=== PATIENT | male | born 1955 | race Caucasian/White ===

== ENCOUNTER 2023-01-23 08:37 | Emergency (ER) | payer MEDICARE, SELFPAY ==
[2023-01-23 08:38] VITALS: BP 146/84; PULSE 78; RESP 16; TEMP 36.4; O2SAT 99; BMI 27.9
--- NOTE | 2023-01-23 09:59 | EX.ED.DYSGE1 ---
HPI History of Present Illness Chief Complaint: General Illness Narrative Narrative: 67-year-old male presenting for testing for COVID. He states he was exposed to COVID 2 days ago. He has a mild headache and a mild sore throat which is improving since yesterday. Patient denies a fever, chills, shortness of breath, cough, chest pain. He is eating and drinking normally. He is making normal urine and stool. [facility] Medical History Diabetes Allergy/AdvReac Type Severity Reaction Status Date / Time No Known Allergies Allergy Verified 01/23/23 08:37 Social History Smoking Status: Current every day smoker tobacco type: cigarettes ROS ROS ED Constitutional Constitutional ED: Denies chills, fever(s) or sweats Eyes Eyes: Denies blurry vision or change in vision ENT ENT ED: Reports sore throat; Denies ear pain Cardiovascular Cardiovascular: Denies chest pain, palpitations or racing heartbeat Respiratory/Chest Respiratory/Chest: Denies cough, dyspnea or sputum Gastrointestinal Gastrointestinal: Denies abdominal pain, constipation, diarrhea, nausea or vomiting Genitourinary Genitourinary ED: Denies dysuria, hematuria or urinary frequency Musculoskeletal Musculoskeletal: Denies arthralgias, myalgias or neck pain Integumentary Denies abscess, Abrasions or rash Neurologic Neurologic: Denies headache(s), paresthesias or weakness Psychiatric Psychiatric: Denies anxiety, depression, suicidal ideation or suicidal thoughts Endocrine Endocrinology: Denies polydipsia or polyuria EXAM Physical Exam Const Vital Signs: 01/23/23 08:38 01/23/23 08:53 Temperature 97.6 F L Temperature Source Temporal Pulse Rate 78 Respiratory Rate 16 Respiratory Effort Normal Respiratory Pattern Normal Blood Pressure 146/84 H Blood Pressure Mean 104 Pulse Ox 99 Oxygen Delivery Method Room Air Positive well nourished General Appearance ED: NAD; Negative for pallor HEENT Reports moist mucous membranes Eyes PERRL and EOMs intact bilaterally Neck no lymphadenopathy Resp normal respiratory effort and clear to auscultation bilaterally Auscultation: Negative for rales, rhonchi or wheezes Cardio regular rate and regular rhythm GI normal to inspection, nondistended, normoactive bowel sounds Neuro oriented x3 and CN's II-XII intact bilaterally Sensorium / Orientation: alert Motor Exam: strength 5/5 throughout Psych mental status grossly normal Skin no rashes or lesions noted General Skin Exam: Negative for jaundice or pallor MDM MDM MDM Narrative Medical decision making narrative: 59-year-old male presenting with exposure to COVID-19. He states he has a mild headache and improving sore throat. He is not having a cough or shortness of breath. No fever or chills. He states he feels generally well. He states he just wanted to get checked out. Vital signs are stable he is afebrile. Patient tested for COVID-19 and is negative today. Patient counseled still possible that he has something viral. He is recommended to do Tylenol and ibuprofen as needed for fever, chills, body aches. Follow-up with PCP to ensure resolution. Return precautions discussed. Impression: 1. Viral syndrome Discharge Plan Triage Chief Complaint: General Illness ED Provider: Farshad Caballero Dx/Rx/DC Orders Instructions: ED Viral Syndrome (Adult) Primary Care Provider: HEATHER MCDANIELS Referrals: HEATHER MCDANIELS [Other] Disposition Disposition: Home, Self Care
== END 2023-01-23 10:29 | disposition home or self-care (01) ==
PROVIDERS: Emergency Provider Student in an Organized Health Care Education/Training Program; Visit Provider Student in an Organized Health Care Education/Training Program
DX: B34.9 Viral infection, unspecified (principal); E11.9 Type 2 diabetes mellitus without complications; F17.210 Nicotine dependence, cigarettes, uncomplicated; Z20.822 Contact with and (suspected) exposure to COVID-19; R51.9 Headache, unspecified
CPT/HCPCS: 87811; 94760; 99282

== ENCOUNTER 2023-02-13 10:23 | Emergency (ER) | payer MEDICARE, SELFPAY ==
[2023-02-13] VITALS (7 sets, daily range): BP systolic 127–135; BP diastolic 72–86; PULSE 56–96; RESP 20–23; TEMP 36.6; O2SAT 96–99; BMI 27.9
--- NOTE | 2023-02-13 10:41 | EKG12_ITS ---
Test Reason : Blood Pressure : / mmHG Vent. Rate : 079 BPM Atrial Rate : 079 BPM P-R Int : 144 ms QRS Dur : 074 ms QT Int : 380 ms P-R-T Axes : 005 -32 038 degrees QTc Int : 435 ms Normal sinus rhythm Left axis deviation Abnormal ECG Confirmed by SOLE JAMES, ROXI ([id number]), dictionary editor MEL PACHECO ([id number]) on 02/14/2023 8:40:34 AM Referred By: AVELINO Confirmed By:ROXI WHIPPLE MD
--- NOTE | 2023-02-13 10:42 | ED.VIS.DYS ---
HPI History of Present Illness Chief Complaint: Shortness of Breath Narrative Narrative: 67-year-old male, smokes left-handed cigarettes, presents with his because of increasing shortness of breath and dyspnea on exertion. They state that they were seen on Monday or Monday at the urgent care, 4 days ago, and told that he was on the verge of pneumonia. They placed him on an antibiotic, and told him to go to the hospital if he felt worse. He denies any chest pain or leg swelling, but states he is having increased difficulty breathing and dyspnea on exertion. He has coughed up phlegm but denies any fevers or chills. No muscle aches, no other symptoms. He does state that he feels weak and tired at times. [facility] Medical History Diabetes Home Medications albuterol sulfate 90 mcg/actuation aerosol inhaler 2 puff inhalation Q6H PRN Wheezing 02/13/23 [History Last Taken Unknown] glimepiride 2 mg tablet 2 mg PO DAILY 02/13/23 [History Last Taken Unknown] metformin 1,000 mg tablet 1,000 mg PO DAILY 02/13/23 [History Last Taken Unknown] pioglitazone 30 mg tablet 30 mg PO DAILY 02/13/23 [History Last Taken Unknown] Allergy/AdvReac Type Severity Reaction Status Date / Time No Known Allergies Allergy Verified 02/13/23 10:23 Social History Smoking Status: Current every day smoker tobacco type: cigarettes ROS ROS ED ROS Narrative Constitutional: No fever, no chills. HEENT: No sore throat. No neck pain. No loss of vision. No rhinorrhea. Cardiovascular: No chest pain. No palpitations. No pedal edema. Respiratory: Positive cough, increasing dyspnea on exertion and shortness of breath. Abdominal: No abdominal pain. No nausea. No vomiting. Genitourinary: No dysuria. No hematuria. Musculoskeletal: No myalgias. No arthralgias. Neurologic: No headaches. No dizziness. No lightheadedness. Skin: No rash. No change in color. Psychiatric: No depression. No anxiety. EXAM Physical Exam Narrative Exam Narrative: Afebrile. Vital signs noted. HEENT: Normocephalic. Atraumatic. PERRL, EOMI. Neck soft and supple. No point tenderness or step off. Cardiovascular: Regular rate and rhythm. No murmurs, rubs, or gallops appreciated. Respiratory: No tachypnea on exam. Lungs clear to auscultation bilaterally with exception of slightly prolonged expiratory phase. Gastrointestinal: Abdomen soft, nontender, with normoactive bowel sounds. No rebound or guarding. Neurological: Awake. Alert. Nonfocal, nonlateralizing. Skin: No rash. Normal color. No pallor. Musculoskeletal: No pedal edema. Full range of motion extremities. Const Vital Signs: 02/13/23 10:24 02/13/23 10:52 02/13/23 11:27 Temperature 97.8 F Temperature Source Temporal Pulse Rate 56 L 70 Respiratory Rate 20 H 20 H Respiratory Effort Short of Breath Respiratory Depth Normal Respiratory Pattern Tachypnea Blood Pressure 130/81 H 135/86 H Blood Pressure Mean 97 102 Pulse Ox 96 98 Oxygen Delivery Method Room Air Room Air Room Air 02/13/23 10:45 02/13/23 12:35 Temperature Temperature Source Pulse Rate 96 81 Respiratory Rate 20 H 23 H Respiratory Effort Respiratory Depth Respiratory Pattern Normal Blood Pressure 127/80 H Blood Pressure Mean 95 Pulse Ox 98 Oxygen Delivery Method Room Air MDM MDM MDM Narrative Medical decision making narrative: Patient may have underlying COPD, versus bronchitis, versus pneumonia. Pulse ox is 96% on room air without evidence of hypoxia. Comprehensive work-up was pursued. I will obtain a chest x-ray and a COVID/influenza swab. I do feel that this would help ruling out a pneumonia. However, the patient is already on antibiotics. I will obtain a CBC and BMP to look for anemia as a cause of his weakness and shortness of breath. EKG was obtained and interpreted by myself which demonstrates normal sinus rhythm at 79 bpm without ectopy or acute ST changes. No STEMI. I have low concern for pulmonary embolism as the patient is not tachycardic and he has a normal pulse ox, and does not describe pleuritic pain. I reviewed the patient's laboratory work, he has a normal white count of 6.3, hemoglobin normal at 14.2, platelet count normal at 234. Sodium slightly low at 133 with potassium normal at 3.8, BUN of 27 with a creatinine of 1.19. Glucose is elevated at 429 consistent with his diabetes, but he has a normal anion gap of 8. I do not feel he is in diabetic ketoacidosis. He has a normal troponin of 4. I do feel that this is greater than a 6-hour troponin. Given the normal EKG and normal troponin I do not feel that he has an acute coronary syndrome or non-STEMI. He also has a normal BNP at 25.8 so I do not feel that he is in congestive heart failure. Chest x-ray was obtained and interpreted by myself as no evidence of a consolidation or pneumonia, no pneumothorax. I reviewed the radiology report which confirms my independent interpretation. At this point in time, he was ambulated in the emergency department and while he may have felt dyspneic, he was not hypoxic. I feel he can be discharged safely home with follow-up to his primary care provider. He may need referral to pulmonology. He was told to refrain from smoking. Additionally, he states he has an albuterol inhaler at home. I do not feel steroids are indicated as this would raise his blood sugars even higher. He may have underlying COPD. He will finish the rest of his antibiotics and follow-up with his primary care provider. Return instructions to the emergency department were reviewed. I do not feel that he meets any observation or admission criteria. Disposition is discharged home in stable condition. History & Record Review Discussion w/independent historian: Patient and Significant other Additional record(s) reviewed:: Prior ED visit Lab Data Attestation: I reviewed the patient's lab results. Labs: Laboratory Results - last 24 hr 02/13/23 02/13/23 02/13/23 10:48 10:48 10:48 WBC 6.3 RBC 4.81 Hgb 14.2 Hct 42.3 MCV 87.9 MCH 29.5 MCHC 33.6 RDW Std Deviation 42.0 RDW Coeff of Zack 13.0 Plt Count 234 MPV 9.7 Immature Gran % (Auto) 0.300 Neut % (Auto) 57.6 Lymph % (Auto) 35.8 [place] % (Auto) 5.3 Eos % (Auto) 0.5 Baso % (Auto) 0.5 Absolute Neuts (auto) 3.6 Absolute Lymphs (auto) 2.25 Nucleated RBC % 0 Differential Comment SCANNED Atypical Lymphocytes 1+ Sodium 133 L Potassium 3.8 Chloride 103 Carbon Dioxide 22.0 Anion Gap 8 BUN 27 H Creatinine 1.19 Estim Creat Clear Calc 65.21 Est GFR (MDRD) Af Amer 78 Est GFR (MDRD) Non-Af 65 BUN/Creatinine Ratio 22.7 H Glucose 429 H Calcium 8.9 Troponin I High Sens 4 B-Natriuretic Peptide 25.8 Radiography Diagnostic Testing: Clinical Impression(s) from Imaging Studies Chest X-Ray 02/13/23 11:07 IMPRESSION: No acute abnormality is present. Electronically Signed: Ancelmo Robertson MD at 11:18 EDT , Discharge Plan Triage Chief Complaint: Shortness of Breath ED Provider: Khurram Murry Dx/Rx/DC Orders Clinical Impression: SOB (shortness of breath), Hyperglycemia Instructions: ED Dyspnea Prescriptions: No Action glimepiride 2 mg tablet 2 mg PO DAILY metformin 1,000 mg tablet 1,000 mg PO DAILY albuterol sulfate 90 mcg/actuation HFA aerosol inhaler 2 puff INHALATION Q6H PRN (Reason: Wheezing) Label Comments: inhale 2 puffs by mouth and INTO THE LUNGS every 4 to 6 hours if ... (REFER TO PRESCRIPTION NOTES). pioglitazone 30 mg tablet 30 mg PO DAILY Primary Care Provider: SIOMN MUÑOZ Referrals: SIMON MUÑOZ [Other] Activity Restrictions/Additional Instructions: Follow-up with your primary care provider in the next 3 to 5 days if not improving. Finish the rest of your antibiotics. Disposition Disposition: Home, Self Care
[2023-02-13] MEDS: Albuterol 2.5 MG/3 ML VIAL.NEB. INHALATION (10:45)
[2023-02-13 10:58] LABS: Absolute Lymphocyte Count 2.25 X10^3/uL (0.83-4.51); Absolute Neutrophil Count 3.6 X10^3/uL (2.0-7.7); Basophil# 0.03 X10^3/uL; Basophil% 0.5 % (0-1); Eosinophil# 0.03 X10^3/uL; Eosinophils% 0.5 % (0-5); Hematocrit 42.3 % (40-54); Hemoglobin 14.2 g/dL (13.0-16.5); Lymphocyte # 2.25 X10^3/ul (0.83-4.51); Lymphocyte % 35.8 % (19-41); Mean Corp Hgb Conc 33.6 g/dL (32-36); Mean Corpuscular Hgb 29.5 pg (27.0-32.0); Mean Corpuscular Volume 87.9 fL (80-94); Mean Platelet Vol. 9.7 fl (6.2-12.0); Monocyte# 0.33 X10^3/uL; Monocyte% 5.3 % (0-10); NRBC Flagged by Analyzer 0 % (0-5); Neutrophil # 3.62 X10^3/uL (2.7-7.7); Neutrophil % 57.6 % (47-70); POSITIVE MORPHOLOGY YES; Platelet Count 234 K/mm3 (150-450); Red Blood Count 4.81 M/mm3 (4.6-6.2); White Blood Count 6.3 K/mm3 (4.4-11.0)
--- NOTE | 2023-02-13 11:07 | RAD_ITS ---
STUDY: X-RAY CHEST REASON FOR EXAM: Male, 67 years old. Shortness of breath TECHNIQUE: Single AP portable view of the chest. COMPARISON: None. FINDINGS: EKG electrodes are seen. The lungs are clear and expanded. There is no demonstrated pleural abnormality. Normal size heart. Normal mediastinum and [place]. Normal visualized pulmonary arteries. There is atherosclerotic calcification of the aortic arch with tortuosity. There are diffuse degenerative changes of the visualized thoracic spine. Normal visualized ribs, clavicles, and shoulders. There is no demonstrated abnormality of the visualized soft tissue structures of the upper abdomen. RAD/Chest 1 View (Portable) IMPRESSION: No acute abnormality is present. Electronically Signed: Ancelmo Robertson MD at 11:18 EDT ,
[2023-02-13 11:10] LABS: Differential Indicated SCAN CRITERIA MET
[2023-02-13 11:13] LABS: Anion Gap 8 (5-15); BUN 27 mg/dL (7-18); BUN/Creat Ratio 22.7 RATIO (10-20); Calcium,Total 8.9 mg/dL (8.5-10.1); Chloride 103 mmol/L (98-107); Creatinine, Serum 1.19 mg/dL (0.70-1.30); EST Glomerular Filtration Rate 65 mL/min (>60); Est Glom Filt Rate - Afr Amer 78 mL/min (>60); Estimated Creatinine Clearance 65.21 ml/min; Glucose 429 mg/dL (74-106); Potassium 3.8 mmol/L (3.5-5.1); Sodium Level 133 mmol/L (136-145); Troponin-I HS 4 pg/mL (3.0-78.0)
[2023-02-13 11:24] LABS: Atypical Lymphocyte 1+ %; Differential Comment SCANNED
[2023-02-13 11:28] LABS: BNP,B-Type NATRIURETIC PEPTIDE 25.8 pg/mL (0-100)
== END 2023-02-13 13:30 | disposition home or self-care (01) ==
PROVIDERS: Emergency Provider Emergency Medicine; Visit Provider Emergency Medicine
DX: R06.02 Shortness of breath (principal); E11.65 Type 2 diabetes mellitus with hyperglycemia; F17.210 Nicotine dependence, cigarettes, uncomplicated; Z79.84 Long term (current) use of oral hypoglycemic drugs
CPT/HCPCS: 71045; 80048; 83880; 84484; 85025; 87428; 93005; 94640; 99284; A4216

== ENCOUNTER 2023-03-15 10:04 | Emergency (ER) | payer MEDICARE, SELFPAY ==
[2023-03-15 10:05] VITALS: BP 145/76; PULSE 78; RESP 16; TEMP 36.6; O2SAT 98; BMI 33.2
--- NOTE | 2023-03-15 10:21 | EDS_ITS ---
HPI HPI - Fall History of Present Illness Chief Complaint: Fall Informant: patient Occured/Mechanism Occurred: Yesterday Pain/Injury Pain Location: lower extremity Quality of Pain: Aching and Throbbing Current Severity: Mild Maximum Severity: Moderate Narrative Narrative: Patient presents secondary to right hip pain. He states he was going up some steps into his mobile home yesterday when he fell backwards landing on a concrete pad. He has pain to the lateral right hip. He denies any other injury. He took Tylenol this morning without improvement. [facility] Medical History Diabetes Home Medications albuterol sulfate 90 mcg/actuation aerosol inhaler 2 puff inhalation Q6H PRN Wheezing 02/13/23 [History Last Taken Unknown] glimepiride 2 mg tablet 2 mg PO DAILY 02/13/23 [History Last Taken Unknown] metformin 1,000 mg tablet 1,000 mg PO DAILY 02/13/23 [History Last Taken Un known] pioglitazone 30 mg tablet 30 mg PO DAILY 02/13/23 [History Last Taken Unknown] naproxen 500 mg tablet (Naprosyn) 500 mg PO BID PRN pain #12 tabs 03/15/23 [Rx Last Taken Unknown] Allergy/AdvReac Type Severity Reaction Status Date / Time No Known Allergies Allergy Verified 03/15/23 10:04 Social History Smoking Status: Current every day smoker tobacco type: cigarettes ROS ROS ED Constitutional Constitutional ED: Denies chills or fever(s) Eyes Eyes: Denies change in vision ENT ENT ED: Denies rhinorrhea or sore throat Cardiovascular Cardiovascular: Denies chest pain or palpitations Respiratory/Chest Respiratory/Chest: Denies cough or dyspnea Gastrointestinal Gastrointestinal: Denies abdominal pain, nausea or vomiting Genitourinary Genitourinary ED: Denies dysuria Musculoskeletal Musculoskeletal: Reports extremity pain; Denies back pain Integumentary Denies Abrasions or rash Neurologic Neurologic: Denies headache(s) or weakness Allergic/Immunologic Allergic/Immunologic ED: Denies lip swelling or urticaria EXAM Physical Exam Const Vital Signs: 03/15/23 10:05 Temperature 97.8 F Temperature Source Temporal Pulse Rate 78 Respiratory Rate 16 Blood Pressure 145/76 H Blood Pressure Mean 99 Pulse Ox 98 Oxygen Delivery Method Room Air Positive well nourished and well developed General Appearance ED: well developed HEENT Reports normocephalic and head/scalp atraumatic Eyes PERRL and EOMs intact bilaterally Neck supple Chest Wall inspection of chest normal and palpation of chest normal Resp normal respiratory effort and clear to auscultation bilaterally Cardio regular rate and regular rhythm GI normal to inspection, nondistended, normoactive bowel sounds Palpation: soft Back/Spine no CVA tenderness Extremity Extremity Narrative: Tenderness outpatient over the greater trochanter of the right hip. No significant edema, erythema, ecchymosis. No pain with logroll of the right leg. Neuro oriented x3 and no sensory deficits noted Sensorium / Orientation: alert Motor Exam: strength 5/5 throughout Psych mental status grossly normal Skin no rashes or lesions noted MDM MDM MDM Narrative Medical decision making narrative: Patient sent for x-rays of the pelvis and right hip to evaluate for fracture. Treatment and Re-Evaluation Narrative: Right hip and pelvis x-rays per my interpretation reveal no evidence of acute fracture. Test results are discussed with patient and at bedside. I did review recent lab work and he has normal renal function. I will give him a short course of anti-inflammatories. Discharge Plan Triage Chief Complaint: Fall ED Provider: Laurel Vidal Dx/Rx/DC Orders Clinical Impression: Contusion of hip, right Instructions: ED Hip Contusion Prescriptions: New naproxen [Naprosyn] 500 mg tablet 500 mg PO BID PRN (Reason: pain) Qty: 12 0RF No Action glimepiride 2 mg tablet 2 mg PO DAILY metformin 1,000 mg tablet 1,000 mg PO DAILY albuterol sulfate 90 mcg/actuation HFA aerosol inhaler 2 puff INHALATION Q6H PRN (Reason: Wheezing) Label Comments: inhale 2 puffs by mouth and INTO THE LUNGS every 4 to 6 hours if ... (REFER TO PRESCRIPTION NOTES). pioglitazone 30 mg tablet 30 mg PO DAILY Primary Care Provider: SIMON MUÑOZ Referrals: SIMON MUÑOZ [Other] - 1 Week if not improving Disposition Disposition: Home, Self Care
--- NOTE | 2023-03-15 10:50 | RAD_ITS ---
STUDY: X-RAY - PELVIS AND RIGHT HIP REASON FOR EXAM: Male, 67 years old. Right hip pain following a fall. TECHNIQUE: 3 views of the pelvis and hip. COMPARISON: None. FINDINGS: There is a non-specific bowel gas pattern. Normal visualized soft tissue structures. Normal bilateral iliac wings, sacroiliac joints and visualized sacrum. Normal bilateral superior and inferior pubic rami. Normal pubic symphysis. Normal bilateral ischial tuberosities. Normal visualized femoral head. Normal acetabulum. Normal hip joint. RAD/HIP, UNI W/ Pelvis 2-3 Views IMPRESSION: Normal x-ray examination of the pelvis and hip. Electronically Signed: Ancelmo Robertson MD at 11:05 EDT ,
[2023-03-15] MEDS: Naproxen 500 MG Tablet PO (11:20)
== END 2023-03-15 11:21 | disposition home or self-care (01) ==
LOC: ED 11:19
PROVIDERS: Emergency Provider Emergency Medicine; Visit Provider Emergency Medicine
DX: S70.01XA Contusion of right hip, initial encounter (principal); E11.9 Type 2 diabetes mellitus without complications; F17.210 Nicotine dependence, cigarettes, uncomplicated; W19.XXXA Unspecified fall, initial encounter
CPT/HCPCS: 73502; 99282

== ENCOUNTER → 2024-07-19 | Outpatient (CLI) | payer MEDICARE, SELFPAY | END | disposition home or self-care (01) | LOC: PSN 07:55 | DX: Z01.810 Encounter for preprocedural cardiovascular examination (principal) | CPT/HCPCS: 93005 ==

== ENCOUNTER 2024-09-16 16:55 | Emergency (ER) | payer MEDICARE, SELFPAY ==
[2024-09-16] VITALS (8 sets, daily range): BP systolic 89–143; BP diastolic 61–91; PULSE 50–79; RESP 15–20; TEMP 36.6–36.7; O2SAT 98–100; BMI 27.5
--- NOTE | 2024-09-16 17:00 | EKG12_ITS ---
Test Reason : CP Blood Pressure : / mmHG Vent. Rate : 059 BPM Atrial Rate : 059 BPM P-R Int : 160 ms QRS Dur : 072 ms QT Int : 432 ms P-R-T Axes : 038 -21 066 degrees QTc Int : 427 ms Sinus bradycardia Otherwise normal ECG Confirmed by SOLE JAMES, ROXI ([id number]), purchasing expeditor JARVIS LUTZ ([id number]) on 09/18/2024 10:04:33 AM Referred By: MALDONADO Confirmed By:ROXI WHIPPLE MD
--- NOTE | 2024-09-16 17:01 | ED.VIS.CHEST ---
HPI History of Present Illness Chief Complaint: Chest Pain [facility] Medical History Diabetes Home Medications ?Medication ?Instructions ?Recorded ?Last Taken ?Type albuterol sulfate 90 mcg/actuation 2 puff inhalation Q6H PRN Wheezing 02/13/23 Unknown History aerosol inhaler glimepiride 2 mg tablet 2 mg PO DAILY 02/13/23 Unknown History metformin 1,000 mg tablet 1,000 mg PO DAILY 02/13/23 Unknown History pioglitazone 30 mg tablet 30 mg PO DAILY 02/13/23 Unknown History naproxen 500 mg tablet (Naprosyn) 500 mg PO BID PRN pain #12 tabs 03/15/23 Unknown Rx Allergy/AdvReac Type Severity Reaction Status Date / Time No Known Allergies Allergy Verified 09/16/24 16:56 Social History Smoking Status: Current every day smoker tobacco type: cigarettes EXAM Physical Exam Const Vital Signs: 09/16/24 16:55 09/16/24 16:56 09/16/24 17:00 Temperature 98.1 F Temperature Source Oral Pulse Rate 62 58 L Respiratory Rate 20 H 15 Blood Pressure 121/81 H 121/81 H Blood Pressure Mean 94 94 Pulse Ox 100 100 100 Oxygen Delivery Method Room Air 09/16/24 17:55 09/16/24 18:47 09/16/24 19:00 Temperature Temperature Source Pulse Rate 63 65 50 L Respiratory Rate 18 18 16 Blood Pressure 106/62 126/75 H 103/65 Blood Pressure Mean 76 92 77 Pulse Ox 100 99 100 Oxygen Delivery Method Room Air Room Air 09/16/24 20:00 Temperature Temperature Source Pulse Rate 67 Respiratory Rate 15 Blood Pressure 89/61 L Blood Pressure Mean 70 Pulse Ox 98 Oxygen Delivery Method Room Air MDM MDM MDM Narrative Medical decision making narrative: HISTORY OF PRESENT ILLNESS: 69-year-old male history of diabetes presents with chest pain. Denies history of stents or heart attacks. No chest pain began 30 minutes prior to arrival was transient improved with nitroglycerin. Is pressure-like. Was not exertional was not associate with shortness of breath. No recent cough fever chills. No leg swelling. No orthopnea or paroxysmal nocturnal dyspnea. Patient noted he felt anxious. Denies vomiting or diarrhea. The patient denies recent surgery in the last 4 weeks or immobilization in the last 3 days, denies previous diagnosis of DVT or PE, hemoptysis, unilateral leg swelling or malignancy with treatment the last 6 months or palliative. No estrogen use noted. Patient denies sudden onset of pain, no tearing sensation, no migratory symptoms, no new numbness, weakness or loss of sensation. Patient denies family history or personal history of Connective tissue disorders (Marfan's Syndrome, Cristobal Danlos etc). REVIEW OF SYSTEMS: Pertinent positives: Chest pain, anxiety Pertinent negatives: Shortness of breath, leg swelling PHYSICAL EXAM: Nursing triage notes reviewed, Vital signs reviewed Constitutional: please see [facility] HENT: MMM Eyes: Pupils equal round and reactive to light, Extraocular muscles intact Neck: No stridor, no JVD, full neck ROM Lungs: Clear to auscultation, No wheezing or rales. No increased work of breathing, no conversational dyspnea, no accessory muscle use, no nasal flaring. No respiratory distress noted Heart: Regular rate and rhythm, No murmurs, No rubs and No gallops, 2+ distal pulses (radial, femoral, posterior tibial) in all extremities Abdomen: Soft, there is no tenderness, rigidity, rebound or guarding, no obvious peritoneal signs, no palpable pulsatile abdominal masses, no auscultated abdominal bruit : No CVAT Extremities: No edema Neuro: No focal neurological deficits, cranial nerves II through XII intact, 5/5 strength in all extremities. Intact sensation to light touch in all extremities, 2+ reflexes bilateral patella tendons. Normal gait. No ataxia. Skin: No rash or lesions noted MEDICAL DECISION MAKING: Chief Complaint: Chest pain External records reviewed: Reviewed prior allergies, problem list, current medications, prior cardiovascular interventions for which there were none Factors affecting care: As per HPI Social determinants of health: Smokes marijuana History obtained from others: EMS, spouse Consults: none [] [facility] Narrative: The patient was hemodynamically stable, afebrile and nontoxic-appearing. Exam without focal cardiopulmonary abnormalities. No stigmata of CHF or VTE. I considered the following differential diagnosis: ACS, arrhythmia, anemia, PE, aortic dissection, pneumonia, pneumothorax, pericarditis I obtained a broad lab and imaging workup to further elucidate etiology of patient's complaints. ALL IMAGES (IF OBTAINED) HAVE BEEN PERSONALLY REVIEWED AND INTERPRETED BY MYSELF. EKG with sinus bradycardia rate 59, otherwise normal intervals, no STEMI, no stigmata of VTE, no sign of ARVD or Brugada syndrome CBC without leukocytosis, severe anemia, no thrombocytopenia. BMP without evidence of significant electrolyte abnormalities, no anion gap, no acute kidney injury. High-sensitivity troponin is negative, no evidence of myocardial ischemiax2 I have personally reviewed the patient's chest x-ray. Chest x-ray is unremarkable for pulmonary edema, pneumothorax, pneumonia or focal cardiopulmonary abnormality. The patient and/or family, caregivers express understanding. The patient and/or family, caregivers agrees with the plan. Shared decision making: I will have a discussion with the patient and or visitors regarding risk/benefits of further testing or admission. They will be made aware of of the risk/benefits inherent in this decision they will be given the opportunity to voice understanding. I discussed the patient's advanced risk given his age history of diabetes and complaint of chest pain. I offer the patient admission. The patient refused. Patient is alert and orient x 3 and had capacity to make his own medical system shows focal admission at this time and lieu of following with his primary care physician for outpatient confirmatory testing. Total critical care time today provided was at least 0 minutes. This excludes separately billable procedures. Critical care time (if documented) is secondary to the patient having high probability of clinically significant/life threatening deterioration in the patient's condition which required my urgent intervention. Impression: 1. Chest pain 2. History of diabetes Dispo: Discharge home This note was generated with [employer] dictation software. It may contain incorrect words, spelling, and punctuation that were not noted in review of the chart prior to signing. Lab Data Labs: Laboratory Results - last 24 hr 09/16/24 09/16/24 17:00 19:20 WBC 6.6 RBC 4.83 Hgb 14.9 Hct 41.9 MCV 86.7 MCH 30.8 MCHC 35.6 RDW Std Deviation 40.9 RDW Coeff of Zack 13.0 Plt Count 236 MPV 9.3 Immature Gran % (Auto) 0.300 Neut % (Auto) 44.2 L Lymph % (Auto) 43.8 H [place] % (Auto) 9.1 Eos % (Auto) 1.5 Baso % (Auto) 1.1 H Absolute Neuts (auto) 2.9 Absolute Lymphs (auto) 2.90 Nucleated RBC % 0 Sodium 136 Potassium 3.9 Chloride 105 Carbon Dioxide 20.0 L Anion Gap 11 BUN 19 H Creatinine 1.18 Estim Creat Clear Calc 63.94 Est GFR (MDRD) Af Amer 78 Est GFR (MDRD) Non-Af 65 BUN/Creatinine Ratio 16.1 Glucose 193 H Calcium 9.4 Troponin I High Sens 5 8 Radiography Diagnostic Testing: Clinical Impression(s) from Imaging Studies Chest X-Ray 09/16/24 17:13 IMPRESSION: No radiographic evidence of acute cardiopulmonary disease. Electronically Signed: Osmin Adams DO at 18:22 EDT Reading Location ID and State: [facility] / [place] Tel [phone], Service support , Discharge Plan Triage Chief Complaint: Chest Pain ED Provider: Tamir Clemente Dx/Rx/DC Orders Prescriptions: No Action glimepiride 2 mg tablet 2 mg PO DAILY metformin 1,000 mg tablet 1,000 mg PO DAILY albuterol sulfate 90 mcg/actuation HFA aerosol inhaler 2 puff INHALATION Q6H PRN (Reason: Wheezing) Patient Comments: inhale 2 puffs by mouth and INTO THE LUNGS every 4 to 6 hours if ... (REFER TO PRESCRIPTION NOTES). pioglitazone 30 mg tablet 30 mg PO DAILY naproxen [Naprosyn] 500 mg tablet 500 mg PO BID PRN (Reason: pain) Qty: 12 0RF Primary Care Provider: Perez Merritt Referrals: Perez Merritt MD [Primary Care Provider] - Print Language: Guinean
--- NOTE | 2024-09-16 17:10 | ED.RN ---
DENIES CP PRESENTLY, HEADACHE AFTER NITRO
--- NOTE | 2024-09-16 17:13 | RAD_ITS ---
INDICATION: chest pain EXAMINATION/TECHNIQUE: X-RAY - XR Chest 1 View COMPARISON: FINDINGS: LINES/DEVICES: None. LUNGS: No consolidation, edema or effusion. No pneumothorax. MEDIASTINUM AND CARDIOVASCULAR STRUCTURES: Cardiac silhouette not enlarged. Central airways and mediastinal contour are unremarkable. BONES AND SOFT TISSUES: Unremarkable. RAD/Chest 1 View (Portable) IMPRESSION: No radiographic evidence of acute cardiopulmonary disease. Electronically Signed: Osmin Adams DO at 18:22 EDT ,
[2024-09-16 17:19] LABS: Absolute Neutrophil Count 2.9 X10^3/uL (2.0-7.7); Basophil# 0.07 X10^3/uL; Basophil% 1.1 % (0-1); Eosinophils% 1.5 % (0-5); Hematocrit 41.9 % (40-54); Hemoglobin 14.9 g/dL (13.0-16.5); Lymphocyte % 43.8 % (19-41); Mean Corp Hgb Conc 35.6 g/dL (32-36); Mean Corpuscular Hgb 30.8 pg (27.0-32.0); Mean Corpuscular Volume 86.7 fL (80-94); Mean Platelet Vol. 9.3 fl (6.2-12.0); Monocyte% 9.1 % (0-10); NRBC Flagged by Analyzer 0 % (0-5); Neutrophil # 2.93 X10^3/uL (2.7-7.7); Neutrophil % 44.2 % (47-70); Platelet Count 236 K/mm3 (150-450); RBC Distribution Width SD 40.9 fl (35.1-43.9); Red Blood Count 4.83 M/mm3 (4.6-6.2); White Blood Count 6.6 K/mm3 (4.4-11.0)
[2024-09-16 17:37] LABS: Anion Gap 11 (5-15); BUN 19 mg/dL (7-18); BUN/Creat Ratio 16.1 RATIO (10-20); Calcium,Total 9.4 mg/dL (8.5-10.1); Chloride 105 mmol/L (98-107); Creatinine, Serum 1.18 mg/dL (0.70-1.30); EST Glomerular Filtration Rate 65 mL/min (>60); Est Glom Filt Rate - Afr Amer 78 mL/min (>60); Estimated Creatinine Clearance 63.94 ml/min; Glucose 193 mg/dL (74-106); Potassium 3.9 mmol/L (3.5-5.1); Sodium Level 136 mmol/L (136-145); Troponin-I HS (w/2H Reflex) 5 pg/mL (3.0-78.0)
[2024-09-16 19:15] LABS: Reflex Troponin-HS? (from REC) Y
[2024-09-16 20:00] LABS: Troponin-I HS 8 pg/mL (3.0-78.0)
== END 2024-09-16 20:59 | disposition home or self-care (01) ==
PROVIDERS: Emergency Provider Emergency Medicine; PCP Internal Medicine; Visit Provider Emergency Medicine
DX: R07.9 Chest pain, unspecified (principal); E11.9 Type 2 diabetes mellitus without complications; R00.1 Bradycardia, unspecified; F17.210 Nicotine dependence, cigarettes, uncomplicated; F41.9 Anxiety disorder, unspecified
CPT/HCPCS: 71045; 80048; 84484; 85025; 93005; 99285; A4216

== ENCOUNTER → 2024-12-18 | Outpatient (CLI) | payer MEDICARE, SELFPAY ==
[2024-12-18 12:58] LABS: Hematocrit 44.7 % (40-54); Hemoglobin 15.3 g/dL (13.0-16.5); Mean Corp Hgb Conc 34.2 g/dL (32-36); Mean Corpuscular Hgb 30.1 pg (27.0-32.0); Mean Corpuscular Volume 87.8 fL (80-94); Mean Platelet Vol. 8.9 fl (6.2-12.0); Platelet Count 300 K/mm3 (150-450); RBC Distribution Width CV 12.5 % (11.6-14.6); RBC Distribution Width SD 40.6 fl (35.1-43.9); Red Blood Count 5.09 M/mm3 (4.6-6.2); White Blood Count 7.5 K/mm3 (4.4-11.0)
[2024-12-18 14:03] LABS: ALB/GLOB Ratio 0.9 RATIO (0.9-2.4); AST(SGOT) 18 U/L (15-37); Alanine Aminotransfer ALT/SGPT 20 U/L (16-61); Alkaline Phosphatase 67 U/L (45-117); Anion Gap 9 (5-15); BUN 15 mg/dL (7-18); BUN/Creat Ratio 11.8 RATIO (10-20); Calcium,Total 9.7 mg/dL (8.5-10.1); Chloride 101 mmol/L (98-107); Cholesterol 134 mg/dL (200); Creatinine, Serum 1.27 mg/dL (0.70-1.30); EST Glomerular Filtration Rate 60 mL/min (>60); Est Glom Filt Rate - Afr Amer 72 mL/min (>60); Globulin 4.3 g/dL (2.2-4.2); Glucose 96 mg/dL (74-106); High Density Lipoprotein 31 mg/dL; Potassium 3.8 mmol/L (3.5-5.1); Protein, Total 8.3 g/dL (6.4-8.2); Sodium Level 132 mmol/L (136-145); Triglycerides 165 mg/dL; Very Low Density Lipoprotein 33 mg/dL (5-40)
== END | disposition home or self-care (01) ==
LOC: VSLAB 12:18
PROVIDERS: PCP Internal Medicine; Visit Provider Internal Medicine Cardiovascular Disease
DX: J44.9 Chronic obstructive pulmonary disease, unspecified (principal); E11.65 Type 2 diabetes mellitus with hyperglycemia; I25.10 Atherosclerotic heart disease of native coronary artery without angina pectoris; E78.5 Hyperlipidemia, unspecified; E66.3 Overweight
CPT/HCPCS: 36415; 80053; 80061; 84443; 85027

== ENCOUNTER → 2024-12-23 | Outpatient (CLI) | payer MEDICARE, SELFPAY ==
--- NOTE | 2024-12-23 08:54 | ECHOCS_ITS ---
Reason For Study: Dyspnea/SOB Procedure This was a 2D Doppler, Color Flow transthoracic echocardiogram. The study was technically difficult. Contrast injection was performed. Exam performed in department. Left Ventricle Normal size and thickness. The left ventricular ejection fraction is 60 %. No evidence for diastolic dysfunction. Right Ventricle Normal right ventricle. Atria The left and right atria are normal. Mitral Valve Normal mitral valve. Tricuspid Valve No tricuspid valve insufficiency. Aortic Valve Trisinus/trileaflet aortic valve. Pulmonic Valve The pulmonic valve is not well visualized. Great Vessels Normal sized aortic root. Pericardium/Pleural No pericardial effusion. Medication 22 gauge I.V. with prn adaptor inserted into right arm. Diluted definity 1.5ml given slow IV push to enhance endocardial definition. MMode/2D Measurements & Calculations LVIDd: 4.5 cm IVSd: 0.69 cm Ao root diam: 3.3 cm LVIDs: 3.0 cm LVPWd: 0.67 cm RVDd: 3.5 cm FS: 32.7 % LAV(MOD-bp): 38.4 ml LVAd ap4: 21.7 cm2 SV(MOD-sp4): 29.2 ml LAV(MOD-bp) Indexed: 18.4 ml/m2 LVLd ap4: 7.1 cm SI(MOD-sp4): 13.9 ml/m2 LAV(MOD-sp2): 31.6 ml EDV(MOD-sp4): 53.7 ml LAV(MOD-sp4): 36.0 ml EDV(sp4-el): 56.7 ml LVAs ap4: 13.3 cm2 LVLs ap4: 6.0 cm ESV(MOD-sp4): 24.5 ml ESV(sp4-el): 25.2 ml EF(MOD-sp4): 54.4 % EF(sp4-el): 55.6 % SV(sp4-el): 31.5 ml LA A4 area: 16.4 cm2 LA dimension(2D): 3.4 cm RA A4 area: 14.2 cm2 TAPSE: 1.6 cm Time Measurements MV dec time: 0.26 sec Doppler Measurements & Calculations MV E max gamaliel: 85.5 cm/sec Lat Peak E' Gamaliel: 7.0 cm/sec Med Peak E' Gamaliel: 6.7 cm/sec MV A max gamaliel: 85.6 cm/sec E/E' lat: 12.2 E/E' med: 12.7 MV E/A: 1.00 MV V2 max: 100.0 cm/sec MV P1/2t max gamaliel: 98.5 cm/sec Ao V2 max: 78.9 cm/sec MV max P.0 mmHg MV P1/2t: 102.6 msec Ao max P.5 mmHg MV V2 mean: 51.1 cm/sec MV dec slope: 281.1 cm/sec2 Ao V2 mean: 52.7 cm/sec MV mean P.3 mmHg MVA(P1/2t): 2.1 cm2 Ao mean P.3 mmHg MV V2 VTI: 41.2 cm Ao V2 VTI: 18.5 cm AV (velocity ratio): 0.98 LV V1 max: 77.4 cm/sec PA V2 max: 67.9 cm/sec LV V1 max P.4 mmHg LV V1 mean P.3 mmHg LV V1 mean: 52.5 cm/sec LV V1 VTI: 18.1 cm ECHO/Echo Complete W/ Contrast Interpretation Summary The left ventricular ejection fraction is 60 %. The study was technically difficult. Ordering Physician: Susan Simon Referring Physician: Susan Simon Performed By: Sarabjit Mitchell RCS
--- NOTE | 2024-12-23 08:54 | CDU_ITS ---
Reason For Study: Dizziness Rt. Velocities/BP Lt. Velocities/BP Prox CCA 72/10 cm/sec. Prox CCA 104/19 cm/sec. Mid CCA 82/16 cm/sec. Mid CCA 115/21 cm/sec. Dist CCA 57/11 cm/sec. Dist CCA 87/13 cm/sec. Prox ICA 63/12 cm/sec. Prox ICA 86/17 cm/sec. Mid ICA 77/21 cm/sec. Mid ICA 73/22 cm/sec. Dist ICA 64/19 cm/sec. Dist ICA 59/15 cm/sec. Rt. ICA/CCA = 0.9. Lt. ICA/CCA = 0.8. Prox ECA 59/6 cm/sec. Prox ECA 63/10 cm/sec. Rt. Vert. 27/8 cm/sec. Lt. Vert. 59/11 cm/sec. Right Extracranial There is intimal thickening but no significant atherosclerotic plaque noted in the right common carotid artery. There is heterogeneous, irregular atherosclerotic plaque noted in the right internal carotid artery. There is intimal thickening but no significant atherosclerotic plaque noted in the right external carotid artery. Abnormal waveform noted Rt Vert A. Left Extracranial There is heterogeneous, irregular atherosclerotic plaque noted in the left common carotid artery. There is heterogeneous, irregular atherosclerotic plaque noted in the left internal carotid artery. There is no significant atherosclerotic plaque noted in the left external carotid artery. Antegrade flow is noted in the left vertebral artery. Procedure Carotid Duplex [id number]. This is a Carotid Duplex examination using B-mode, color flow and specral Doppler. Exam performed in department. VL/Carotid Duplex Ultrasound Interpretation Summary Mild (<50%) stenosis right extracranial internal carotid. Mild (<50%) stenosis left extracranial internal carotid. The Right vertebral is patent and antegrade with pre-steal morphology. The Left vertebral is patent and antegrade. Ordering Physician: Susan Simon Referring Physician: Perez Merritt Performed By: Kayleigh Hernandez, RDCS, RVT
== END | disposition home or self-care (01) ==
LOC: CVS 08:54
PROVIDERS: PCP Internal Medicine; Referring Provider Internal Medicine Cardiovascular Disease; Visit Provider Internal Medicine Cardiovascular Disease
DX: R42 Dizziness and giddiness (principal); I77.9 Disorder of arteries and arterioles, unspecified; E78.00 Pure hypercholesterolemia, unspecified; E78.1 Pure hyperglyceridemia; I25.10 Atherosclerotic heart disease of native coronary artery without angina pectoris
CPT/HCPCS: 93306; 93880; Q9957; A4216; C8929

== ENCOUNTER → 2024-12-27 | Outpatient (CLI) | payer MEDICARE, SELFPAY ==
--- NOTE | 2024-12-27 12:39 | CT_ITS ---
PROCEDURE: LIMITED CHEST CT CARDIAC ONLY REASON FOR EXAM: Assessment of the coronary arteries. TECHNIQUE: Chest CT with intravenous contrast. CONTRAST: 87 mL of Isovue 370 was injected intravenously. COMPARISON: None. FINDINGS: Hardware: None. Lymph nodes: No mediastinal hilar or axillary lymphadenopathy. Heart and Vasculature: Normal heart size. No pericardial effusion. Minimal coronary artery calcification. Atherosclerotic calcifications of the thoracic aorta. Pulmonary arteries are unremarkable. Lungs and Airways: The lungs are normally expanded and clear. Pleura: No pleural effusion. No pneumothorax. Upper Abdomen: Fatty infiltration of the liver. Small hiatal hernia. Bones: Bone windows are unremarkable. CT/Limited Chest CT Cardiac Only IMPRESSION: Minimal coronary artery calcification. Fatty infiltration of the liver. Small hiatal hernia. One or more dose reduction techniques were used (e.g., Automated exposure contr ol, adjustment of the mA and/or kV according to patient size, use of iterative reconstruction technique). Reading Location: [place] [id number]
[2024-12-27 12:55] VITALS: BP 120/71; PULSE 69; RESP 18; TEMP 36.6; O2SAT 99; BMI 26.0
[2024-12-27 13:14] VITALS: BP 120/71; PULSE 68
[2024-12-27] MEDS: Nitroglycerin SL (ED/IMG/CATH) 0.4 MG TABLET SL (13:14)
[2024-12-27 13:20] VITALS: BP 92/58; PULSE 76; RESP 18; O2SAT 99
[2024-12-27 13:25] LABS: CREATININE FINGERSTICK 1.4 mg/dL (0.70-1.30)
--- NOTE | 2024-12-27 16:42 | CCTA_ITS ---
CCTA w/Cont Coronary Arteries Date of Study:: 12/27/24 Chest pain Coronary Calcium Scoring: High-resolution Computed Tomographic imaging of the chest was performed on [12/27/24 ], with particular attention paid to the coronary arteries. Intravenous contrast agent was administered per protocol and images reconstructed and displayed. LEFT MAIN CORONARY ARTERY: Arises from the left coronary cusp and bifurcates to left anterior descending artery and left circumflex artery no significant stenosis noted in this vessel. [] LEFT ANTERIOR DESCENDING CORONARY ARTERY: Arises from the left main coronary art samuel with mild calcification noted in the proximal region with the vessel continuing with no significant calcification present. No significant obstructive stenosis is present [] LEFT CIRCUMFLEX CORONARY ARTERY: Nondominant vessel with no significant atherosclerotic plaque noted [] RIGHT CORONARY ARTERY: Dominant right coronary artery with no significant atherosclerotic disease present. Conclusion: Coronary CT angiogram with no significant atherosclerotic obstructive plaque present.
== END | disposition home or self-care (01) ==
LOC: CT 12:25
PROVIDERS: PCP Internal Medicine; Referring Provider Internal Medicine Cardiovascular Disease; Visit Provider Internal Medicine Cardiovascular Disease
DX: R93.1 Abnormal findings on diagnostic imaging of heart and coronary circulation (principal); I77.9 Disorder of arteries and arterioles, unspecified; R07.89 Other chest pain; I25.10 Atherosclerotic heart disease of native coronary artery without angina pectoris; R42 Dizziness and giddiness; E78.00 Pure hypercholesterolemia, unspecified; E78.1 Pure hyperglyceridemia; I95.1 Orthostatic hypotension; R06.02 Shortness of breath
CPT/HCPCS: 75574; 76380; Q9967